=== PATIENT | male | born 1950 | race Caucasian/White ===

== ENCOUNTER 2020-09-24 12:12 | Outpatient (CLI) | payer MEDICARE ==
[2020-09-24 12:38] LABS: Hemoglobin 9.2 g/dL (14.0-18.0); Mean Corpuscular Hemoglobin 33.7 pg (27.0-31.0); Red Blood Cell (RBC) Count 2.73 mill/uL (4.70-6.10); White Blood Cell (WBC) Count 5.7 thou/uL (4.8-10.8)
[2020-09-24 12:39] LABS: #Basophils 0.5 thou/uL (0.0-0.2); #Lymphocytes 0.2 thou/uL (1.20-3.40); #Monocytes 0.3 thou/uL (0.11-0.59); #Neutrophils 5.1 thou/uL (1.40-6.50); %Basophils 0.9 % (0.0-1.0); %Eosinophils 0.5 % (0.0-10.0); %Lymphocytes 3.5 % (21.0-51.0); %Neutrophils 90.1 % (42.0-75.0); Manual Diff?? NO; Mean Corpuscular HGB CONC 31.8 g/dL (32.0-36.0); Mean Platelet Volume 7.9 fL (7.4-10.4); Platelet Count 149 thou/uL (130-400); RBC Distribution Width 17.8 % (11.5-14.5)
== END 2020-09-24 12:13 | disposition home or self-care (01) ==
LOC: NAV LAB 12:12
PROVIDERS: ATTEND Family Medicine
DX: D64.9 Anemia, unspecified (principal); N30.00 Acute cystitis without hematuria
CPT/HCPCS: 36415; 85025